=== PATIENT | male | born 1980 | race Asian ===

== ENCOUNTER 2018-07-26 07:40 | Emergency (ER) | payer OTHER ==
[~2018-07-26] VITALS: Ht 175.3 cm; Wt 105.7 kg
[2018-07-26 07:50] VITALS: TEMP 98
[2018-07-26 08:39] VITALS: BP 136/84
== END 2018-07-26 08:38 | disposition home or self-care (01) ==
LOC: ED 07:40
DX: G47.00 Insomnia, unspecified (principal)
CPT/HCPCS: 99281

== ENCOUNTER 2019-05-30 17:36 | Emergency (ER) | payer OTHER ==
[~2019-05-30] VITALS: Ht 175.3 cm; Wt 105.7 kg
[2019-05-30 17:40] VITALS: TEMP 98.6
[2019-05-30 18:17] VITALS: BP 153/86
== END 2019-05-30 18:20 | disposition home or self-care (01) ==
LOC: ED 17:36
DX: K04.7 Periapical abscess without sinus (principal)
CPT/HCPCS: 96372; 99283; J0696; J1885

== ENCOUNTER 2021-07-30 08:53 | Emergency (ER) | payer OTHER ==
[~2021-07-30] VITALS: Ht 175.3 cm; Wt 77.1 kg
[2021-07-30 08:56] VITALS: TEMP 97.4
[2021-07-30] MEDS ORDERED: ORPHENADRINE100 MG PO (09:45)
[2021-07-30] MEDS ORDERED: KETO10TA34 PO (09:45)
[2021-07-30] MEDS ORDERED: PREDNISONE20 MG PO (09:45)
[2021-07-30 10:00] VITALS: BP 118/82
== END 2021-07-30 10:15 | disposition home or self-care (01) ==
LOC: ED 08:53
DX: M51.36 Other intervertebral disc degeneration, lumbar region (principal); X50.0XXA Overexertion from strenuous movement or load, initial encounter; Y92.89 Other specified places as the place of occurrence of the external cause
CPT/HCPCS: 96372; 99283; J1885; J2360